=== PATIENT | female | born 1975 | race Caucasian/White ===

== ENCOUNTER 2021-11-28 21:39 | Emergency (ER) | payer OTHER ==
[2021-11-28 22:23] VITALS: PULSE 78; TEMP 98.2
[2021-11-29] MEDS ORDERED: SODIUM CHLORIDE 0.9% 50 ML IVPB ONE (01:00)
[2021-11-29] MEDS ORDERED: CASIRIVIMAB (REGN10933) (EUA) 600 MG, IMDEVIMAB (REGN10987) (EUA) 600 MG in SODIUM CHLO... IVPB ONE (01:00)
--- NOTE | 2021-11-29 01:07 | ED ---
URI HPI - General Chief Complaint: Upper Respiratory Infection Stated Complaint: COVID+, Wants BAM Time Seen by Provider: 11/29/21 00:00 Source: patient Mode of arrival: ambulatory Limitations: no limitations - History of Present Illness Initial Comments: 46-year-old female patient presents to the emergency department today requesting monoclonal antibody infusion after being diagnosed with COVID-19. Patient states she started having symptoms approximately 6 days ago. States she tested positive on Friday. She does have copy of her COVID test with her. She reports cough, chest tightness, shortness of breath with activity. She states she is having nasal congestion and drainage. States her ears are popping. She denies any nausea, vomiting, constipation, or diarrhea. States she does feel fatigued. She does have history of asthma. - Related Data Allergies Allergy/AdvReac Type Severity Reaction Status Date / Time codeine Allergy Unknown Verified 11/28/21 22:16 propranolol [From Inderal LA] Allergy Unknown Verified 11/28/21 22:16 Review of Systems ROS Statement: Those systems with pertinent positive or pertinent negative responses have been documented in the HPI. ROS Other: All systems not noted in ROS Statement are negative. Past Medical History Past Medical History: Asthma, GERD/Reflux, Hyperlipidemia Additional Past Medical History / Comment(s): RLS, allergies History of Any Multi-Drug Resistant Organisms: None Reported Past Surgical History: Adenoidectomy, Hernia Repair, Hysterectomy, Tonsillectomy Additional Past Surgical History / Comment(s): GERD surgery Past Psychological History: Anxiety, Depression Smoking Status: Never smoker Past Alcohol Use History: Occasional Past Drug Use History: None Reported General Exam Limitations: no limitations General appearance: alert, in no apparent distress, other (This is a well- developed, well-nourished adult female in no acute distress.) ENT exam: Present: normal exam, normal oropharynx, mucous membranes moist. Absent: TM's normal bilaterally (Serous otitis media) Respiratory exam: Present: normal lung sounds bilaterally. Absent: respiratory distress, wheezes, rales, rhonchi, stridor Cardiovascular Exam: Present: regular rate, normal rhythm, normal heart sounds. Absent: systolic murmur, diastolic murmur, rubs, gallop, clicks GI/Abdominal exam: Present: soft, normal bowel sounds. Absent: distended, tenderness, guarding, rebound, rigid Neurological exam: Present: alert, oriented X3, CN II-XII intact Psychiatric exam: Present: normal affect, normal mood Skin exam: Present: warm, dry, intact, normal color. Absent: rash Course Vital Signs 11/28/21 11/29/21 22:16 02:36 Temperature 98.2 F Pulse Rate 78 78 Respiratory 20 18 Rate Blood Pressure 146/90 140/89 O2 Sat by Pulse 97 99 Oximetry Medical Decision Making - Medical Decision Making 46-year-old female patient presented to the emergency department today requesting antibody infusion. Physical examination was unremarkable. She did have intermittent cough. Evidence for some serous otitis media. She did tolerate receive the antibody infusion without difficulty. She'll be discharged home with instructions to follow-up with her primary care physician for recheck in 1-2 days. Return parameters were discussed in detail. She verbalizes understanding and agrees with this plan. My attending is Dr. Rodriguez. Disposition Clinical Impression: COVID-19 Disposition: HOME SELF-CARE Condition: Good Instructions (If sedation given, give patient instructions): Coronavirus Disease 2019 (COVID-19) Additional Instructions: Tips to help you feel better: -Maintain adequate fluid intake - especially water. -Rest, you are healing your body will require extra sleep. -Eat even if you do not feel like it - broth, jello, toast are fine if you cannot eat full meals. -Take tylenol and motrin alternating (if you have no allergies or have not been instructed to avoid these medications) to help with body aches and fevers. -Obtain over the counter vitamin C, zinc, and vitamin D3. -Take medications as prescribed. Follow-up with your primary care physician for recheck in 1-2 days. Return for any new, worsening, or concerning symptoms. Is patient prescribed a controlled substance at d/c from ED?: No Referrals: Nonstaff,Physician [Primary Care Provider] - 1-2 days
[2021-11-29 02:37] VITALS: BP 140/89; RESP 18
== END 2021-11-29 02:37 | disposition home or self-care (01) ==
LOC: EC 21:39
DX: U07.1 COVID-19 (principal); H65.90 Unspecified nonsuppurative otitis media, unspecified ear; J45.909 Unspecified asthma, uncomplicated; E78.5 Hyperlipidemia, unspecified
CPT/HCPCS: 99284; Q0244